=== PATIENT | male | born 1990 | race Caucasian/White ===

== ENCOUNTER 2020-10-27 02:08 | Emergency (ER) | payer SELFPAY ==
[~2020-10-27] VITALS: Ht 178 cm; Wt 73.0 kg
[2020-10-27 02:10] VITALS: BP 142/83
[2020-10-27] MEDS ORDERED: TETRACAINE 0.5% OPHTH SOLN 4 ML BTL (SINGLE DOSE ONLY) OP ONE (02:15)
[2020-10-27] MEDS ORDERED: FLUORESCEIN (FLUOR-I-STRIPS) 1 MG STRP ONE (02:17)
[2020-10-27] MEDS ORDERED: TETRACAINE 0.5% OPHTH SOLN 4 ML BTL (SINGLE DOSE ONLY) ONE (02:17)
[2020-10-27] MEDS ORDERED: HYDROcodone/APAP 10 MG/325 MG (LORTAB) TAB PO ONE (02:30)
[2020-10-27] MEDS ORDERED: RX-HYDROCODONE/APAP 5/325 MG #4 TAB PK PO PRN (02:30)
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
[2020-10-27] MEDS ORDERED: RX-GENTAMICIN SULFATE 0.3% OP 5 ML BTL OU STA (02:39)
[2020-10-27] MEDS ORDERED: GENT5DRO30 OP (02:43)
[2020-10-27] MEDS ORDERED: HYDR-4226 PO (02:44)
== END 2020-10-27 02:49 | disposition home or self-care (01) ==
LOC: ER 02:11
DX: H16.8 Other keratitis (principal)
CPT/HCPCS: 99283

== ENCOUNTER 2021-03-09 20:25 | Emergency (ER) | payer SELFPAY ==
[~2021-03-09 20:25] MED LIST: GENT5DRO30 OP; HYDR-4226 PO
[2021-03-09] MEDS ORDERED: LACTATED RINGERS 1,000 ML IV ONE (20:45)
[2021-03-09] MEDS: LACTATED RINGERS 1,000 ML IV ONE (20:50)
[2021-03-09 20:57] LABS: HEMATOCRIT 45 % (40-54); HEMOGLOBIN 15.3 g/dL (13.3-17.7); MEAN CORPUSCULAR HEMOGLOBIN 33 pg (25-34); MEAN CORPUSCULAR HGB CONC 34 g/dL (32-36); MEAN CORPUSCULAR VOLUME 96 fL (80-99); MEAN PLATELET VOLUME 9.1 fL (9.0-12.2); PLATELET COUNT 260 10^3/uL (130-400); WHITE BLOOD COUNT 11.4 10^3/uL (4.3-11.0)
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
[2021-03-09 21:10] LABS: ALBUMIN 4.4 GM/DL (3.2-4.5); CHLORIDE 106 MMOL/L (98-107); POTASSIUM 3.6 MMOL/L (3.6-5.0); SODIUM 143 MMOL/L (135-145)
[2021-03-09 21:12] LABS: CALCIUM 9.1 MG/DL (8.5-10.1)
[2021-03-09 21:13] LABS: GLUCOSE 78 MG/DL (70-105); TOTAL PROTEIN 7.4 GM/DL (6.4-8.2)
[2021-03-09 21:14] LABS: CARBON DIOXIDE 26 MMOL/L (21-32)
[2021-03-09 21:15] LABS: BILIRUBIN,TOTAL 0.3 MG/DL (0.1-1.0)
[2021-03-09] MEDS ORDERED: HOLD METFORMIN - RECEIVED CONTRAST 20 ML VIAL IV SCH (21:15)
[2021-03-09 21:17] LABS: ALKALINE PHOSPHATASE 109 U/L (40-136); CREATININE SERUM 0.86 MG/DL (0.60-1.30); GFR ESTIMATED > 60
[2021-03-09 21:18] LABS: BILIRUBIN,DIRECT 0.2 MG/DL (0.0-0.3); BILIRUBIN,INDIRECT 0.1 MG/DL; BUN/CREATININE RATIO 16
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
[2021-03-09 21:20] LABS: ALANINE AMINOTRANSFERASE 44 U/L (0-55)
[2021-03-09] MEDS: IOHEXOL 350 MG/ML 100 ML (OMNIPAQUE 350) VIAL IV ONE (21:31)
[2021-03-09] MEDS: NS 100 ML (IVPB) BAG IV ONE (21:31)
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
[2021-03-09] MEDS: FLUORESCEIN (FLUOR-I-STRIPS) 1 MG STRP OU ONE (21:33)
[2021-03-09] MEDS: TETRACAINE 0.5% OPHTH SOLN 4 ML BTL (SINGLE DOSE ONLY) OU ONE (21:33)
[2021-03-09] MEDS ORDERED: ONDA4TAB11 PO (21:51)
[2021-03-09] MEDS ORDERED: CYCL10TA9 PO (21:51)
[2021-03-09 21:57] LABS: BILIRUBIN,URINE NEGATIVE (NEGATIVE); CLARITY,URINE CLEAR; COLOR,URINE YELLOW; GLUCOSE, URINE (UA) NEGATIVE (NEGATIVE); KETONES,URINE NEGATIVE (NEGATIVE); LEUKOCYTE ESTERASE ,URINE NEGATIVE (NEGATIVE); NITRITE,URINE NEGATIVE (NEGATIVE); PROTEIN,URINE NEGATIVE (NEGATIVE)
[2021-03-09 22:04] LABS: BACTERIA,URINE NEGATIVE /HPF; SQUAMOUS EPITHELIAL CELL,UR RARE /HPF
[2021-03-09] MEDS: RX-ONDANSETRON 4 MG ODT (ZOFRAN) PPK #4 PO STA (22:11)
[2021-03-09] MEDS: RX-CYCLOBENZAPRINE 10 MG (FLEXERIL) TAB PPK#3 PO STA (22:11)
[2021-03-09] MEDS: ACETAMINOPHEN 500 MG TAB (TYLENOL) PO ONE (22:11)
[2021-03-09] MEDS: TETANUS,DIPTH,PERTUSS P/F (BOOSTRIX) 0.5 ML VIAL IM ONE (22:16)
[2021-03-09 22:30] VITALS: BP 118/69
[2021-03-10] MEDS: LACTATED RINGERS 1,000 ML IV ONE (06:36)
== END 2021-03-09 22:30 | disposition home or self-care (01) ==
LOC: EDUNIT# 20:25 → ER 20:27
DX: S06.0X9A Concussion with loss of consciousness of unspecified duration, initial encounter (principal); T26.52XA Corrosion of left eyelid and periocular area, initial encounter; T26.51XA Corrosion of right eyelid and periocular area, initial encounter; S01.21XA Laceration without foreign body of nose, initial encounter; S16.1XXA Strain of muscle, fascia and tendon at neck level, initial encounter; S80.12XA Contusion of left lower leg, initial encounter; S80.811A Abrasion, right lower leg, initial encounter; F17.290 Nicotine dependence, other tobacco product, uncomplicated; Z23 Encounter for immunization; V29.9XXA Motorcycle rider (driver) (passenger) injured in unspecified traffic accident, initial encounter; Y92.411 Interstate highway as the place of occurrence of the external cause
CPT/HCPCS: 70450; 71045; 71260; 72125; 74177; 80048; 80076; 81000; 85027; 86850; 86900; 86901; 93041; 99284; G0480; 36415; 80320; 90715

== ENCOUNTER 2021-03-21 15:20 | Emergency (ER) | payer SELFPAY ==
[~2021-03-21] VITALS: Ht 172 cm; Wt 70.0 kg
[~2021-03-21 15:20] MED LIST changes: +CYCL10TA9 PO; +ONDA4TAB11 PO
[2021-03-21 15:23] VITALS: BP 145/79
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
[2021-03-21] MEDS ORDERED: CEPH500T PO (16:13)
[2021-03-21] MEDS ORDERED: ACHD5005 PO (16:13)
== END 2021-03-21 16:21 | disposition home or self-care (01) ==
LOC: EDUNIT# 15:20 → ER FS 15:23
DX: S82.002A Unspecified fracture of left patella, initial encounter for closed fracture (principal); S80.211A Abrasion, right knee, initial encounter; S50.311A Abrasion of right elbow, initial encounter; S30.810A Abrasion of lower back and pelvis, initial encounter; V28.4XXA Motorcycle driver injured in noncollision transport accident in traffic accident, initial encounter

== ENCOUNTER 2021-04-30 10:09 | Emergency (ER) | payer SELFPAY ==
[~2021-04-30 10:09] MED LIST changes: +ACHD5005 PO; +CEPH500T PO
[2021-04-30] MEDS ORDERED: morphine INJ 10 MG/ML 1ML (SYR OR VIAL) IM STA (10:50)
[2021-04-30] MEDS ORDERED: ONDANSETRON 4 MG (ZOFRAN) ORAL DISSOLVE TAB PO STA (10:50)
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
[2021-04-30] MEDS ORDERED: ACHD5005 PO (12:11)
[2021-04-30] MEDS ORDERED: CLIN150C18 PO (12:11)
[2021-04-30] MEDS ORDERED: HYDR-3817 PO (12:36)
[2021-04-30] MEDS ORDERED: oxyCODONE/APAP 5/325MG (PERCOCET 5) TABLET PO ONE (12:45)
[2021-04-30 13:40] VITALS: BP 120/75
== END 2021-04-30 13:40 | disposition home or self-care (01) ==
LOC: EDUNIT# 10:09 → ER FS 10:13
DX: S60.512A Abrasion of left hand, initial encounter (principal); S60.511A Abrasion of right hand, initial encounter; S80.812A Abrasion, left lower leg, initial encounter; L03.116 Cellulitis of left lower limb; V89.2XXA Person injured in unspecified motor-vehicle accident, traffic, initial encounter
CPT/HCPCS: 73590